=== PATIENT | male | born 1960 | race Caucasian/White ===

== ENCOUNTER → 2025-11-22 12:54 | Outpatient (REF) | payer MEDICARE, OTHER, SELFPAY | LOC: RAD 12:54 | PROVIDERS: ATTENDING PHYSICIAN Radiology Diagnostic Radiology; FAMILY PHYSICIAN Family Medicine | DX: C15.9 Malignant neoplasm of esophagus, unspecified (principal) | CPT/HCPCS: 70492; Q9967 ==